=== PATIENT | female | born 2000 | race Two or more races ===

== ENCOUNTER 2020-12-08 11:03 | Emergency (ER) | payer SELFPAY ==
[~2020-12-08] VITALS: Ht 154.9 cm; Wt 72.2 kg
[2020-12-08 11:46] VITALS: BP 105/68
[2020-12-08] MEDS ORDERED: HYDR28OI2 TP (13:30)
[2020-12-08] MEDS ORDERED: PRED50TA PO (13:30)
--- NOTE | 2020-12-08 13:30 | PHYS DOC ---
Past Medical History Past Surgical History: No Surgical History General Adult EDM: Chief Complaint: SKIN PROBLEM HPI: HPI: Patient is a 20 year old female presents to the emergency department complaining of rash to her chest left arm and left side of face that has been there for the past 2 days after coming in contact with poison laith that is growing near her home. Patient complains of itching, denies any pain of the rash. The patient has not tried any wxxd-gch-ddpnuva topical ointments or creams, denies trying calamine lotion. The patient has not taken any medications for the itching or rash. Patient denies shortness of breath, denies chest pain or chest palpitations, denies fever or chills. Patient reports her last menstrual cycle was 1 week ago. The patient denies any other physical complaints or physical concerns. Patient denies cigarette smoking, EtOH use, or illicit drug use. Review of Systems: Review of Systems: 14 body systems of review of systems have been reviewed. See HPI for pertinent positives and negative responses, otherwise all other systems are negative, nonpertinent or noncontributory. Constitutional: Negative except as outlined in HPI above. Skin: Negative except as outlined in HPI above. Eyes: Negative except as outlined in HPI above. HENT: Negative except as outlined in HPI above. Respiratory: Negative except as outlined in HPI above. Cardiovascular: Negative except as outlined in HPI above. GI: Negative except as outlined in HPI above. : Negative except as outlined in HPI above. Musculoskeletal: Negative except as outlined in HPI above. Integument: Negative except as outlined in HPI above. Neurologic: Negative except as outlined in HPI above. Endocrine: Negative except as outlined in HPI above. Lymphatic: Negative except as outlined in HPI above. Psychiatric: Negative except as outlined in HPI above. Heart Score: C/O Chest Pain: No Risk Factors: Risk Factors: DM, Current or recent (<one month) smoker, HTN, HLP, family history of CAD, obesity. Risk Scores: Score 0 - 3: 2.5% MACE over next 6 weeks - Discharge Home Score 4 - 6: 20.3% MACE over next 6 weeks - Admit for Clinical Observation Score 7 - 10: 72.7% MACE over next 6 weeks - Early Invasive Strategies Physical Exam: PE: Constitutional: Well developed, well nourished, no acute distress, non-toxic appearance. 20-year-old female in no apparent distress. HENT: Normocephalic, atraumatic. No drooling, no trismus, patient speaking in normal voice tones, no angioedema appreciated. No lymphadenopathy of the head or neck appreciated. Eyes: Conjunctiva normal, no discharge. Neck: Normal range of motion, no stridor. Cardiovascular: No cyanosis appreciated, distal cap refill less than 2 seconds. Lungs & Thorax: Patient is in no respiratory distress, no audible adventitious lung sounds appreciated. Abdomen: Nontender, no abnormalities noted. Skin: Warm, dry, no erythema, patient has papular vesicular rash with erythematous base, erythroderma, skin intact, plaques lichenification, no weeping to anterior chest, right breast, left AC of arm, left side of neck. Back: No tenderness, no deformities. Extremities: No tenderness, no cyanosis, no clubbing, ROM intact, no edema. [] Neurologic: Alert and oriented X 3, normal motor function, normal sensory function, no focal deficits noted. Psychologic: Affect normal, judgement normal, mood normal. Current Patient Data: Vital Signs: Vital Signs Date Time Temp Pulse Resp B/P (MAP) Pulse Ox O2 Delivery O2 Flow Rate FiO2 12/08/20 11:46 98.3 75 18 105/68 99 Room Air 98.3 EKG: EKG: [] Radiology/Procedures: Radiology/Procedures: [] Course & Med Decision Making: Course & Med Decision Making Pertinent Labs and Imaging studies reviewed. (See chart for details) 20-year-old female, vital signs reviewed, presents emergency department chief complaint of skin rash after coming in contact with poison laith that is growing near her home. Patient reports the rash for the past 2 days. Physical examination is consistent with patient's explanation of events, concerning for contact dermatitis most likely from contact with poison oak/poison laith growing near patient's home. No infectious process appreciated, the skin is intact, no oozing or broken skin. Will prescribe oral prednisone, hydrocortisone cream, recommend pnza-nsr-vpmehig Benadryl for itching, Caladryl or calamine lotion use. Oatmeal baths for comfort. Patient gave verbal understanding of discharge home instructions, medication use, follow-up with PCP soon, return to ER precautions and concerns, cezk-qva-xcclhkl medication use, is hemodynamically stable and in no apparent distress at discharge, patient was discharged home without incident. Dragon Disclaimer: Dragon Disclaimer: This electronic medical record was generated, in whole or in part, using a voice recognition dictation system. Departure Departure Impression: Primary Impression: Contact dermatitis Disposition: 01 HOME / SELF CARE / HOMELESS Condition: GOOD Patient Instructions: Contact Dermatitis Additional Instructions: You were seen today in the emergency department for skin rash and skin itching after coming in contact with poison laith at your home. Please take oral prednisone medication and topical ointment as directed, please use over-the-c ounter Benadryl for itching, you may use yrkg-ffq-[id number] Caladryl or calamine lotion for comfort, you may use oatmeal baths in the evening for comfort if needed. This rash is not infected, please keep clean and dry, this rash may last 2 weeks or so before resolving. Please follow-up with your primary care physician for ongoing treatment. Please return to the emergency department for signs and symptoms of infectious process, worsening conditions, shortness of breath, or other concerns. Thank you for visiting our Emergency Department. It was a pleasure taking care of you today in the emergency department and we appreciate you trusting us with your care. If any additional problems come up don't hesitate to return to visit us. Please follow up with your primary care provider so they can plan additional care if needed and know about the problem that you had. If symptoms worsen come back to the Emergency Department. Any concerning symptoms that start such as chest pain, shortness of air, weakness or numbness on one side of the body, running high fevers or any other concerning symptoms return to the ER. EMERGENCY DEPARTMENT GENERAL DISCHARGE INSTRUCTIONS Thank you for coming to [facility] Emergency Department (ED) today and trusting us with you care. We trust that you had a positive experience in our Emergency Department. If you wish to speak to the department management, you may call the Director at [phone]. YOUR FOLLOW UP INSTRUCTIONS ARE FOLLOWS: 1. Do you have a private Doctor? If you do not have a private doctor, please ask for a resource list of physicians or clinics that may be able to assist you with follow up care. 2. The Emergency Physicain has interpreted your x-rays. The X-Ray specialist will also review them. If there is a change in the findings, you will be notified in 48 hours when at all possible. 3. A lab test or culture has been done, your results will be reviewed and you will be notified if you need a change in treatment. ADDITIONAL INSTRUCTIONS AND INFORMATION: 1. Your care today has been supervised by a physician who is specially trained in emergency care. Many problems require more than one evaluation for a complete diagnosis and treatment. We recommend that you schedule your follow up appointment as recommended to ensure complete treatment of you illness or injury. If you are unable to obtain follow up care and continue to have a problem, or if your condition worsens, we recommend that you return to the ED. 2. We are not able to safely determine your condition over the phone nor are we able to give sound medical advice over the phone. For these safety reasons, if you call for medical advice we will ask you to come to the ED for further evaluation. 3. If you have any questions regarding these discharge instructions please call the ED at [phone]. SAFETY INFORMATION: In the interest of safety, wellness, and injury prevention; we encourage you to wear your sealbelt, if you smoke; quite smoking, and we encourage family to use a pr otective helmet for bicycling and other sporting events that present an increased risk for head injury. IF YOUR SYMPTOMS WORSEN OR NEW SYMPTOMS DEVELOP, OR YOU HAVE CONCERNS ABOUT YOUR CONDITION; OR IF YOUR CONDITION WORSENS WHILE YOU ARE WAITING FOR YOUR FOLLOW UP APPOINTMENT; EITHER CONTACT YOUR PRIMARY CARE DOCTOR, THE PHYSICIAN WHOSE NAME AND NUMBER YOU WERE GIVEN, OR RETURN TO THE ED IMMEDIATELY. Scripts Hydrocortisone Acetate (HYDROCORTISONE) 28 Gm Oint...g. 28 GM TP BID for skin rash for 14 Days, #1 MISC 0 Refills Prov: ULYSSES VANCE APRN 12/08/20 Prednisone (PREDNISONE) 50 Mg Tablet 50 MG PO DAILY for contact dermatitis for 14 Days, #14 TAB 0 Refills Prov: ULYSSES VANCE APRN 12/08/20 ULYSSES VANCE APRN Dec 08, 2020 13:30
== END 2020-12-08 13:46 | disposition home or self-care (01) ==
LOC: ER 11:03
DX: L25.9 Unspecified contact dermatitis, unspecified cause (principal)
CPT/HCPCS: 99283